=== PATIENT | male | born 1960 ===

== ENCOUNTER → 2021-01-12 18:13 | Outpatient (CLI) | payer BC, SELFPAY ==
--- NOTE | ~2021-01-12 | XR_ITS ---
EXAMINATION: XR hip RT min 2V DATE: 01/12/2021 18:30 INDICATION: Right hip and lumbar pain. TECHNIQUE: 1. Anteroposterior and frog-leg lateral views of the right hip were obtained. 2. AP and left and right oblique views of the sacroiliac joints were obtained. COMPARISON: None. FINDINGS: Alignment is normal. No fracture or suspected avascular necrosis. Bilateral sacroiliac joint spaces a re normal. Right hip joint space is also normal. Osteoarthritis with mild nonuniform joint space narr owing at the left hip. Moderate facet osteoarthritis on the left at L4-L5 and L5-S1 and mild facet os teoarthritis bilaterally at L3-L4 and on the right at L4-L5 and L5-S1. IMPRESSION: 1. Normal right hip and bilateral sacroiliac joints. 2. 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 Reviewed, dictated and finalized at location A. IMPRESSION: 1. Normal right hip and bilateral sacroiliac joints. 2. Mild left hip osteoarthritis and mild to moderate lower lumbar facet osteoar thritis, left greater than right.
--- NOTE | ~2021-01-12 | XR_ITS ---
EXAMINATION: XR sacroiliac joints min 3V DATE: 01/12/2021 18:30 INDICATION: Right hip and lumbar pain. TECHNIQUE: 1. Anteroposterior and frog-leg lateral views of the right hip were obtained. 2. AP and left and right oblique views of the sacroiliac joints were obtained. COMPARISON: None. FINDINGS: Alignment is normal. No fracture or suspected avascular necrosis. Bilateral sacroiliac joint spaces a re normal. Right hip joint space is also normal. Osteoarthritis with mild nonuniform joint space narr owing at the left hip. Moderate facet osteoarthritis on the left at L4-L5 and L5-S1 and mild facet os teoarthritis bilaterally at L3-L4 and on the right at L4-L5 and L5-S1. IMPRESSION: 1. Normal right hip and bilateral sacroiliac joints. 2. 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 Reviewed, dictated and finalized at location A. IMPRESSION: 1. Normal right hip and bilateral sacroiliac joints. 2. Mild left hip osteoarthritis and mild to moderate lower lumbar facet osteoar thritis, left greater than right.
== END ==
PROVIDERS: PCP Pediatrics; Visit Provider Nurse Practitioner Family
DX: M54.5 Low back pain (principal); M25.551 Pain in right hip; M16.12 Unilateral primary osteoarthritis, left hip; M47.816 Spondylosis without myelopathy or radiculopathy, lumbar region
CPT/HCPCS: 72202; 73502